=== PATIENT | male | born 1995 | race American Indian/Alaskan Native ===

== ENCOUNTER 2018-07-23 00:28 | Emergency (ER) | payer OTHER ==
[2018-07-23] MEDS ORDERED: TYLENOL PO ONE (00:55)
[2018-07-23 00:56] VITALS: BP 129/70
[2018-07-23] MEDS ORDERED: TYLENOL ONE (01:47)
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
== END 2018-07-23 04:51 | disposition home or self-care (01) ==
LOC: ED 00:28
DX: S46.911A Strain of unspecified muscle, fascia and tendon at shoulder and upper arm level, right arm, initial encounter (principal); S09.90XA Unspecified injury of head, initial encounter; F17.200 Nicotine dependence, unspecified, uncomplicated; V49.49XA Driver injured in collision with other motor vehicles in traffic accident, initial encounter; Y93.89 Activity, other specified; Y92.488 Other paved roadways as the place of occurrence of the external cause; Y99.8 Other external cause status
CPT/HCPCS: 70450; 99284